=== PATIENT | female | born 1970 | race Caucasian/White ===

== ENCOUNTER → 2016-10-19 | Outpatient (CLI) | payer OTHER ==
[~2016-10-19] MED LIST: ATOM40CA PO; CETI10TA PO; EXCETAB80 PO; FLINCHW5 PO; FLUT1SPR2; FOLI1TAB2 PO; HYDR200T3 PO; IBUP800T23 PO; LISI-538 PO; LYRI150C PO; METH25IN5 SC; PERCOCET PO; PRED10TA PO; VITA100066 PO; VITA200015 PO
--- NOTE | 2016-10-19 08:38 | REPMRS ---
Patient History The patient states she has not had a clinical breast exam in over a year. Family history of breast cancer in mother at age 54. Digital Mammo Screening Bilat: October 19, 2016 - Exam #: [id number] Bilateral CC and MLO view(s) were taken. Technologist: Deja Ibarra, Technologist Prior study comparison: October 20, 2015, bilateral digital mammo screening bilat performed at [facility]. October 02, 2014, bilateral digital mammo screening bilat performed at [facility]. January 15, 2011, digital bilateral screening mammo, performed at [facility]. FINDINGS: The breast tissue is heterogeneously dense. This may lower the sensitivity of mammography. There is a moderate amount of heterogeneously dense fibroglandular tissue which is fairly symmetric. There is no interval development of dominant mass, architectural distortion, or clustered microcalcification typical of malignancy. There has been no change in the appearance of the mammogram from the prior studies. ASSESSMENT: BI-RADS/ACR category 1 mammogram. Negative. Recommendation Routine screening mammogram of both breasts in 1 year (for women over age 40). This mammogram was interpreted with the aid of an FDA-approved computer-aided dectection system. Electronically Signed By: Axel Veras MD 10/19/16 0838
== END ==
LOC: M RAD 07:02
PROVIDERS: ATTEND Nurse Practitioner Family
DX: Z12.31 Encounter for screening mammogram for malignant neoplasm of breast (principal)

== ENCOUNTER → 2017-05-16 | Outpatient (CLI) | payer OTHER | LOC: M RAD 16:16 | DX: M47.892 Other spondylosis, cervical region (principal); M47.896 Other spondylosis, lumbar region ==

== ENCOUNTER → 2017-10-20 | Outpatient (CLI) | payer OTHER | LOC: M RAD 07:24 | DX: Z12.31 Encounter for screening mammogram for malignant neoplasm of breast (principal) | CPT/HCPCS: 77067 ==

== ENCOUNTER 2018-01-28 14:20 | Emergency (ER) | payer OTHER, MEDICARE ==
[2018-01-28 15:56] LABS: BASO % 0.3 % (0.0-1.0); EOS # 0.1 10^3/uL (0.0-0.50); EOS % 1.2 % (0.0-3.0); HEMATOCRIT 44.4 % (36.0-47.0); HEMOGLOBIN 14.9 g/dl (12.0-15.5); IMMATURE GRANULOCYTE % 0.5 % (0-3.0); LYMPH # 1.2 10^3/uL (1.5-4.5); LYMPH % 15.9 % (24.0-44.0); MEAN CORPUSCULAR HEMOGLOBIN 30.2 pg (27.0-33.0); MEAN CORPUSCULAR HGB CONC 33.6 g/dl (32.0-36.5); MEAN CORPUSCULAR VOLUME 89.9 fl (80.0-96.0); MONO # 0.6 10^3/uL (0.0-0.8); MONO % 7.4 % (0.0-5.0); NEUTROPHILS # 5.7 10^3/uL (1.8-7.7); NEUTROPHILS % 74.7 % (36.0-66.0); PLATELET COUNT, AUTOMATED 362 10^3/uL (150-450); RED BLOOD COUNT 4.94 10^6/uL (4.00-5.40); RED CELL DISTRIBUTION WIDTH 14.5 % (11.5-14.5); WHITE BLOOD COUNT 7.7 10^3/uL (4.0-10.0)
[2018-01-28] MEDS: ONDANSETRON 4MG/2ML VIAL (J2405) IV (15:56)
[2018-01-28] MEDS: PANTOPRAZOLE 40MG INJ (PROTONIX) (C9113) IV (15:56)
[2018-01-28] MEDS: GI COCKTAIL 50ML BTL(HYOSCYAMINE/MAALOX/LIDOCAINE VISCOUS)(1:3:1) PO (15:56)
[2018-01-28] MEDS: MORPHINE 4 MG/ML 1ML VIAL/SYRINGE (J2270) IV (15:58)
[2018-01-28 16:16] LABS: POS COUNT POS FLAG
[2018-01-28 16:19] LABS: ALBUMIN 3.8 GM/DL (3.2-5.2); ALKALINE PHOSPHATASE 107 U/L (45-117); ALT/SGPT 20 U/L (12-78); ANION GAP 11 MEQ/L (8-16); AST/SGOT 21 U/L (7-37); BILIRUBIN,DIRECT 0.1 MG/DL (0.0-0.2); BILIRUBIN,TOTAL 0.4 MG/DL (0.2-1.0); BLOOD UREA NITROGEN 10 MG/DL (7-18); CALCIUM LEVEL 8.8 MG/DL (8.5-10.1); CARBON DIOXIDE LEVEL 23 MEQ/L (21-32); CHLORIDE LEVEL 108 MEQ/L (98-107); CREATININE FOR GFR 0.78 MG/DL (0.55-1.30); GLOMERULAR FILTRATION RATE > 60.0 (>58); GLUCOSE, FASTING 111 MG/DL (70-100); LIPASE 141 U/L (73-393); POTASSIUM SERUM 4.1 MEQ/L (3.5-5.1); SODIUM LEVEL 142 MEQ/L (136-145); TOTAL PROTEIN 7.6 GM/DL (6.4-8.2)
[2018-01-28] MEDS ORDERED: ISOVUE-370 76% 100ML VIAL (Q9967) As Ordered (16:23)
[2018-01-28 18:15] LABS: KETONE, URINE AUTO RFX NEGATIVE (NEGATIVE); LEUKOCYTE ESTERASE UR AUTO RFX NEGATIVE (NEGATIVE); MUCUS, URINE RFX SMALL (NEGATIVE); NITRITE, URINE AUTO RFX NEGATIVE (NEGATIVE); RBC, URINE AUTO RFX 3 /HPF (0-3); SQUAM EPITHELIAL CELL UR AURFX 6 /HPF (0-6); WBC, URINE AUTO RFX 0 /HPF (0-3)
[2018-01-28 18:30] LABS: SPECIFIC GRAVITY UR AUTO RFX >1.060 (1.002-1.035)
== END 2018-01-28 18:39 | disposition home or self-care (01) ==
LOC: M ED 14:20
DX: K21.9 Gastro-esophageal reflux disease without esophagitis (principal); K42.9 Umbilical hernia without obstruction or gangrene; E66.9 Obesity, unspecified; R73.03 Prediabetes; I10 Essential (primary) hypertension; G47.33 Obstructive sleep apnea (adult) (pediatric); F33.9 Major depressive disorder, recurrent, unspecified; F41.9 Anxiety disorder, unspecified; F43.10 Post-traumatic stress disorder, unspecified; Z88.8 Allergy status to other drugs, medicaments and biological substances; Z91.018 Allergy to other foods; Z79.899 Other long term (current) drug therapy; Z79.84 Long term (current) use of oral hypoglycemic drugs
CPT/HCPCS: C9113